=== PATIENT | female | born 1935 | race Caucasian/White ===

== ENCOUNTER 2021-04-30 10:59 | Inpatient (IN) | payer MEDICARE, OTHER, SELFPAY ==
[2021-04-30] VITALS (89 sets, daily range): BP systolic 99–175; BP diastolic 46–119; PULSE 52–139; RESP 13–32; TEMP 36.4–36.7; O2SAT 89–98
--- NOTE | 2021-04-30 11:00 | RT.EKG_ITS ---
APPROVED REPORT Exam: Resting ECG Reason for Exam: was unresponsive Patient Location: E HR:82 bpm ECG Measurements Heart Rate 82 AXIS FL 183 P 0 QRSd 115 QRS -60 QT 434 T 104 QTc 509 Conclusion Unknown rhythm, irregular rate...V-rate 60-104, variation>10% Left anterior fascicular block...axis(240,-40), init forces inf LVH with secondary repolarization abnormality...multi-LVH criteria, abnrm ST-T Anterior infarct, old...Q >40mS, abnormal ST-T, V2-V5 Prolonged QT interval...QTc >500mS atrial fibrillation at 82, left anterior fascicular block, anterior Q waves, QTC 509, no STEMI, nondi agnostic EKG
--- NOTE | 2021-04-30 11:36 | ED.GENADUL_ITS ---
Discharge Plan Disposition Patient Disposition: [facility] INPATIENT Condition: Good Discharge Details Chief Complaint: Dizzy/Sync Clinical Impression: Atrial fibrillation with rapid ventricular response Admit Date/Time: 04/30/21 14:18 Admit Provider: Jena Kelly Attending Provider: Jean Kelly Primary Care Provider: Matthew Sanchez ED Provider: Malia Rajan Discharge Instructions Activity:: Activity as Tolerated Equipment/Supplies:: No Equipment Needed Diet:: Resume routine diet Discharge Orders Discharge Orders: Discharge Order (Routine); Ordered 05/01/21 Ordered By: Jean Kelly Discharge Data Discharge Date/Time-TO BE ENTERED AT DEPARTURE: 04/30/21 15:52 Medical Decision Making Jac Posadas is an 86 y/o woman with a h/o HTN, HLD, atrial fibrillation, and lymphoma who prevented to the emergency department with a reaction during chemo infusion and chest tightness. On exam Pt is well and non-toxic appearing. Tachycardic irregular rhythm. LCTAB. No respiratory distress. Concern for possible infusion reaction, afib with RVR, pulmonary embolism, ACS, metabolic/lyte derangement, other. Exam/hx at this time not c/w acute aortic pathology, anaphylaxis, acute emergent intra-abdominal process, CVA, other acute emergent intracranial etiology. EKG obtained, shows afib. Plan for screening labs, CT chest, telemetry, will monitor and reassess. Pt now with HR 140s. Pt reports that she is asymptomatic. Plan for diltiazem IV bolus. Labs reviewed, WBC 7.57, Hgb 11.4, K 4.2, trop negative. CT chest negative. Pt's HR initially normalized, now rapid afib again. Plan for dilt gtt, admission. Medical Records Medical records reviewed: Yes I reviewed the patient's medical records. Lab Data Lab results reviewed: Yes I reviewed the patient's lab results. ECG Data Attestation: I personally reviewed and interpreted this ECG (s) as follows: Interpretation: EKG shows atrial fibrillation at 82, left anterior fascicular block, anterior Q waves, QTC 509, no STEMI, nondiagnostic EKG HPI General Date/Time Provider Initiated Documentation: 04/30/21 11:00 . Limitations to Documentation: no limitations . Information obtained by: patient, RN notes reviewed and old records reviewed . HPI Narrative: Jac Posadas is an 86 y/o woman h/o HLD, HTN, lymphoma, atrial fibrillation presenting to the emergency department with chest tightness. Pt reports that she was receiving rituximab infusion today for lymphoma when she developed a sensation that she describes as a curtain being pulled up from her feet to her chest, and some chest tightness. No loss of consciousness. She received benadryl and dexamethasone at [facility], and was sent to the emergency department for further eval. Pt reports that she had similar reaction to rituximab in the past, but she and her oncologist had discussed reattempting administration of medication. Pt reports that she was previously in her usual state of health. She reports feeling basically asymptomatic at this time, other than mild chest tightness. She denies any other pain, SOB, cough, fever, vomiting, diarrhea, rash, itching swelling. Related Data Home Medications Medication Instructions Recorded Confirmed Centrum Silver Women 1 tab PO DAILY 04/30/21 04/30/21 Eliquis 5 mg PO BID 04/30/21 04/30/21 acetaminophen 500 mg PO Q6H PRN 04/30/21 04/30/21 cholecalciferol (vitamin D3) 1 mcg PO DAILY 04/30/21 04/30/21 cyanocobalamin (vitamin B-12) 1,000 mcg PO DAILY 04/30/21 04/30/21 escitalopram oxalate 10 mg PO DAILY 04/30/21 04/30/21 metoprolol succinate 50 mg PO DAILY 04/30/21 04/30/21 Allergies Allergy/AdvReac Type Severity Reaction Status Date / Time rosuvastatin AdvReac Unknown Other (See Unverified 04/30/21 18:05 Comment) General Stated Complaint: Dizzy/Sync MATA: 3 Review of Systems Narrative: Constitutional: denies fevers Eyes: denies eye pain ENT: denies ear pain, dental pain, sore throat, difficulty swallowing Cardiovascular: denies edema, reports chest tightness Respiratory: denies SOB, cough GI: denies abdominal pain, vomiting, diarrhea : denies flank pain MSK: denies back pain, neck pain, arthralgias, myalgias Skin: denies rash Neuro: denies headaches, numbness, weakness PFSH Active Problem List Depression (Chronic) Hyperlipidemia (Acute) Essential hypertension (Acute) Malignant lymphoplasmacytic lymphoma (Acute) Atrial fibrillation with rapid ventricular response (Acute) Social History Smoking/Tobacco Use Status: Never Smoking risk assessment performed?: Yes Alcohol Intake: never Drug use: Never Substance use type: does not use Do you feel safe at home: Yes Do you feel safe in your relationship?: Yes Exam Narrative Exam Narrative: Constitutional: well and [id number], pleasant, conversing normally HENT: head atraumatic/normocephalic/normal inspection, mucous membranes moist Eyes: conjunctiva normal, sclera normal, pupils 3mm b/l Neck: no stridor, normal ROM, trachea midline Chest: normal inspection, no tenderness to palpation Resp: normal work of breathing, LCTAB Cardio: tachycardic rate, irregularly irregular rhythm, no murmur appreciated GI: abdomen soft, non-tender, non-distended Back: normal inspection, no rash Skin: warm, dry, normal color, no rash Neuro: alert, not altered, grossly non-focal, normal tone Ext: no edema, no posterior calf TTP Psych: normal mood, normal affect, normal behavior Course Vital Signs Vital signs: Vital Signs Temperature 36.7 C 04/30/21 11:16 Pulse 76 04/30/21 11:16 Respiratory Rate 18 04/30/21 11:16 Blood Pressure 160/76 H 04/30/21 11:16 Pulse Oximetry 94 04/30/21 11:16 Temperature 36.7 C 04/30/21 11:16 Temperature Source Temporal Artery Scan 04/30/21 11:16 Pulse 76 04/30/21 11:16 Respiratory Rate 18 04/30/21 11:16 Respiratory Effort 04/30/21 11:24 Blood Pressure 160/76 H 04/30/21 11:16 Blood Pressure Position Supine 04/30/21 11:16 Pulse Oximetry 94 04/30/21 11:16 Oxygen Delivery Method Room Air 04/30/21 11:16 Oxygen Flow Rate 0 04/30/21 11:16 Pain Level 6 04/30/21 11:16
[2021-04-30] MEDS: Normal Saline 500 ML IV (11:46)
[2021-04-30 11:54] LABS: Bilirubin Negative (Negative); Clarity Clear (Clear); Glucose Negative (Negative); Ketones Negative (Negative); Leukocyte Esterase Negative (Negative); Nitrite Negative (Negative); Urobilinogen 0.2 EU/dL (Up TO 0.2)
[2021-04-30 11:54] LABS: Abs Immature Grans 0.09 10^3/uL (0.0-0.06); Absolute Basophil Count 0.04 10^3/uL (0.0-0.2); Absolute Eosinophil Count 0.06 10^3/uL (0.0-0.7); Absolute Lymphocyte Count 1.84 10^3/uL (1.2-3.4); Absolute Neutrophil Count 5.44 10^3/uL (1.2-6.7); Basophils % 0.5; Eosinophils % 0.8; HGB 11.4 g/dL (11.2-15.7); Immature Grans % 1.2; Lymphocytes % 24.3; MCH 27.1 pg (27.0-33.0); MCHC 31.7 % (32.0-36.0); MCV 85.5 fL (80-95); MPV 10.5 fL (8.0-11.0); Monocytes % 1.3; Neutrophils % 71.9; Nucleated RBC 0 %; Platelet Count 218 10^3/uL (130-400); RBC 4.21 10^6/uL (3.93-5.22); RDW-SD 49.8 fL; WBC 7.57 10^3/uL (4.4-10.8)
[2021-04-30 11:55] LABS: Blood Trace-intact (Negative)
[2021-04-30 12:05] LABS: Epithelial Cells Rare HPF (Negative)
[2021-04-30 12:06] LABS: Bacteria Moderate HPF (Negative); C & S Indicated? Yes; Casts Negative LPF (Negative); Crystals Negative HPF (Negative); Mucus Negative (Negative); Other Cells Few Transitional (Negative)
[2021-04-30 12:11] LABS: BUN 13 mg/dL (7-18); Estimated GFR 52.82 (mL/min/1.73m2); Glucose 112 mg/dL (74-106)
[2021-04-30 12:12] LABS: ALT 100 U/L (14-59); AST 137 U/L (15-37); Albumin 3.6 g/dL (3.4-5.0); Alkaline Phosphatase 89 U/L (46-116); Anion Gap 6.4 mmol/L (3-11); Bilirubin, Total 0.7 mg/dL (0.2-1.0); CO2 29.6 mmol/L (21.0-32.0); Chloride 104 mmol/L (98-107); Lipase 80 U/L (73-393); Magnesium 2.1 mg/dL (1.8-2.4); Potassium 3.7 mmol/L (3.5-5.1); Sodium 140 mmol/L (136-145); Total Protein 8.6 g/dL (6.4-8.2); Troponin I < 0.05 ng/mL (<0.06)
--- NOTE | 2021-04-30 13:00 | DI.CT_ITS ---
Exam(s) CT CHEST PE CTA EXAM: CT CHEST PE CTA CLINICAL HISTORY: chest pain. TECHNIQUE: Imaging Protocol: CT angiography of the chest was performed using pulmonary embolus nova col. Multi planar reconstructions were performed. CONTRAST MATERIAL: Intravenous: Omnipaque 350 Contrast volume: 100 cc COMPARISON: No exams were available for comparison FINDINGS: CHEST: PULMONARY ARTERIES: There are no intraluminal filling defects to suggest acute pulmonary emboli. LUNGS: Some air trapping density is noted bilaterally but no confluent infiltrates nor pleural effusi ons.. No pneumothorax. MEDIASTINUM: There is no hilar nor mediastinal adenopathy. Visualized thyroid unremarkable. CARDIAC: Mild cardiomegaly. No pericardial effusion. Thecaliber of the thoracic aorta is upper norm al. No dissection. Mild-moderate coronary artery calcification noted. There is no significant vanessa ft of the interventricular septum. PARTIALLY VISUALIZED UPPERMOST ABDOMEN: No obvious findings OSSEOUS: No significant osseous lesions.. IMPRESSION: 1. No evidence of acute pulmonary emboli. No evidence of pulmonary infarction.No pleural effusions. 2. No confluent infiltrates. No pneumothorax. No intrathoracic adenopathy. 3. Mild cardiomegaly. No pericardial effusion. RADIATION DOSE DELIVERED: 383.31mGy.cm Total DLP DATA REPOSITORY: All CT scans at this facility are submitted to the National Radiology Data Registry (NRDR) Dose Index Registry (DIR) with the [employer] (ACR). RADIATION OPTIMIZATION: All CT scans at this facility use at least one of these dose optimization te chniques: automated exposure control; mA and/or kV adjustment per patient size (includes targeted exa ms where dose is matched to clinical indication); or iterative reconstruction.
[2021-04-30] MEDS: Normal Saline 1,000 ML 30 ML IV (13:10)
[2021-04-30] MEDS: dilTIAZem 25 MG/5 ML VIAL 10 MG IVP (13:13)
[2021-04-30] MEDS: dilTIAZem 125 MG in Normal Saline 100 ML IV (14:24)
[2021-04-30 15:01] LABS: Source Nasal/Nares
[2021-04-30] MEDS: Omnipaque 350 MG/ML 100 ML BTL IJ (15:14)
[2021-04-30] MEDS: Normal Saline - Diluent 50 ML VIAL IV (15:16)
[2021-04-30] MEDS: Normal Saline Flush 10 ML SYR IVP (15:17)
[2021-04-30 15:34] LABS: Troponin I 0.05 ng/mL (<0.06)
--- NOTE | 2021-04-30 17:00 | W.PM.HP.N ---
Date of service: 04/30/21 Time of Service: 17:00 Assessment and Plan Assessment and plan (1) Atrial fibrillation with rapid ventricular response: Status: Acute Assessment and plan: Likely as a result of the reaction to chemotherapeutic agent; rituximab. No electrolyte abnormalities. No dehydration noted. Cardizem drip initiated with improving ventricular rate; still increases with activity but at rest has improved. Cont AC with Apixaban. Cont her metprolol in the AM. Hopefull will not need to add cardizem to her regimen. (2) Malignant lymphoplasmacytic lymphoma: Status: Acute Assessment and plan: She states that this is the second time she had a reaction to rituximab; first was in 2005. She states she is finished with chemotherapy. She will have that discuassion with her oncologist. (3) Essential hypertension: Status: Acute Assessment and plan: Cont metoprolol and HCTZ daily unless hypotensive. Monitor. (4) Hyperlipidemia: Status: Acute Assessment and plan: Not on a lipid lower medication. (5) Depression: Status: Chronic Assessment and plan: Cont escitalopram. History of Present Illness History of Present Illness Chief Complaint: Reaction to chemotherapy. Narrative: This is an 86 yo female with a PMH of lymphoplasmacytic lymphome, dx June 2005, HLD, HTN, glaucoma, CVA/embolic, Paroxysmal afib. She present to the ED from the [facility] where she received rituximab chemotherapy that resulted in a reaction of feeling a wave come over her; starting in her feet up to her chest. She described chest tightening. No resp distress, oral/throat/tongue swelling, fever, syncope. She received IV steroid and diphenhydramine. In the ED she was noted to be in atrial fibrillation with a rapid ventricular response into the 130's. She was given an IV bolus of cardizem that temporarily lowered her HR into the 110's to 120's, but with any activity / changing positions, her ventricular rate continued to elevate further. No concerning EKG changes noted. Initial troponin of < 0.05. Second troponin was 0.05. Cardizem drip initiated and admitted to the ICU. Review of Systems All systems reviewed & are unremarkable except as noted in HPI and below PFSH Social History Smoking/Tobacco Use Status: Never Smoking risk assessment performed?: Yes Alcohol Intake: never Drug use: Never Substance use type: does not use Do you feel safe at home: Yes Do you feel safe in your relationship?: Yes Meds Allergies and Home Medications Allergies Allergy/AdvReac Type Severity Reaction Status Date / Time rosuvastatin AdvReac Unknown Other (See Unverified 04/30/21 18:05 Comment) Home Medications Medication Instructions Recorded Confirmed Type acetaminophen 500 mg PO Q6H PRN 04/30/21 04/30/21 History apixaban [Eliquis] 5 mg PO BID 04/30/21 04/30/21 History cholecalciferol (vitamin D3) 1 mcg PO DAILY 04/30/21 04/30/21 History cyanocobalamin (vitamin B-12) 1,000 mcg PO DAILY 04/30/21 04/30/21 History escitalopram oxalate 10 mg PO DAILY 04/30/21 04/30/21 History hydrochlorothiazide 12.5 mg PO DAILY 04/30/21 04/30/21 History metoprolol succinate 50 mg PO DAILY 04/30/21 04/30/21 History [id number] 1 tab PO DAILY 04/30/21 04/30/21 History [Centrum Silver Women] Exam Const General: cooperative and no acute distress Nutritional Appearance: overweight Orientation: alert and oriented x3 HENMT Head: atraumatic Ears: hearing grossly normal bilaterally Eyes General: appearance normal, both eyes and all related structures Sclera: sclerae normal Neck Neck: normal visual inspection and no JVD Resp Effort & Inspection: normal respiratory effort Auscultation: clear to auscultation bilaterally Cardio Rate: tachycardic Rhythm: abnormal rhythm irregularly irregular GI Palpation: soft and nontender Auscultation: normal bowel sounds Skin General skin exam: no rashes or lesions noted Extrem General: no pedal edema and no calf tenderness Psych Mental Status: mental status grossly normal Affect: normal affect Results Labs Result diagrams: 04/30/21 11:45 05/01/21 06:10 Labs: Laboratory Results - last 24 hr 04/30/21 04/30/21 04/30/21 11:30 11:45 11:45 WBC 7.57 RBC 4.21 Hgb 11.4 Hct 36.0 MCV 85.5 MCH 27.1 MCHC 31.7 L RDW 16.0 H Plt Count 218 MPV 10.5 Immature Gran % 1.2 Neutrophils % 71.9 Lymphocytes % 24.3 Monocytes % 1.3 Eosinophils % 0.8 Basophils % 0.5 Nucleated RBC % 0 Absolute Neutrophils 5.44 Absolute Lymphocytes 1.84 Absolute Monocytes 0.10 Absolute Eosinophils 0.06 Absolute Basophils 0.04 Sodium 140 Potassium 3.7 Chloride 104 Carbon Dioxide 29.6 Anion Gap 6.4 BUN 13 Creatinine 1.0 Estimated GFR/1.73 m2 52.82 Glucose 112 H Calcium 9.0 Magnesium 2.1 Total Bilirubin 0.7 AST 137 H ALT 100 H Alkaline Phosphatase 89 Troponin I < 0.05 Total Protein 8.6 H Albumin 3.6 Lipase 80 Urine Color Yellow Urine Clarity Clear Urine pH 7.0 Ur Specific [place] 1.020 Urine Protein 100 H Urine Ketones Negative Urine Blood Trace-intact H Urine Nitrite Negative Urine Bilirubin Negative Urine Urobilinogen 0.2 Ur Leukocyte Esterase Negative Urine RBC 5-10 H Urine WBC 5-10 Ur Epithelial Cells Rare Urine Crystals Negative Urine Bacteria Moderate Urine Casts Negative Urine Mucus Negative Urine Other Few Transitional Ur Culture Indicated? Yes Urine Glucose Negative COVID-19 Source 04/30/21 04/30/21 14:48 15:00 WBC RBC Hgb Hct MCV MCH MCHC RDW Plt Count MPV Immature Gran % Neutrophils % Lymphocytes % Monocytes % Eosinophils % Basophils % Nucleated RBC % Absolute Neutrophils Absolute Lymphocytes Absolute Monocytes Absolute Eosinophils Absolute Basophils Sodium Potassium Chloride Carbon Dioxide Anion Gap BUN Creatinine Estimated GFR/1.73 m2 Glucose Calcium Magnesium Total Bilirubin AST ALT Alkaline Phosphatase Troponin I 0.05 Total Protein Albumin Lipase Urine Color Urine Clarity Urine pH Ur Specific [place] Urine Protein Urine Ketones Urine Blood Urine Nitrite Urine Bilirubin Urine Urobilinogen Ur Leukocyte Esterase Urine RBC Urine WBC Ur Epithelial Cells Urine Crystals Urine Bacteria Urine Casts Urine Mucus Urine Other Ur Culture Indicated? Urine Glucose COVID-19 Source Nasal/Nares Last Vital Signs Temp 36.7 C 04/30/21 11:16 Pulse 131 H 04/30/21 15:16 Resp 20 04/30/21 15:20 BP 142/107 H 04/30/21 15:16 Pulse Ox 94 04/30/21 15:20
[2021-04-30 19:20] LABS: Troponin I < 0.05 ng/mL (<0.06)
[2021-04-30 19:28] LABS: COVID-19 PCR Negative (Negative)
[2021-04-30] MEDS: Escitalopram 10 MG TAB PO (19:50)
[2021-04-30] MEDS: Apixaban 5 MG TAB PO (19:50)
[2021-04-30] MEDS: Acetaminophen 325 MG TAB PO (19:51)
[2021-05-01] VITALS (27 sets, daily range): BP systolic 134–150; BP diastolic 65–79; PULSE 55–87; RESP 14–25; TEMP 35.7–36.4; O2SAT 95–98
[2021-05-01 07:37] LABS: Anion Gap 10.5 mmol/L (3-11); BUN 19 mg/dL (7-18); CO2 25.5 mmol/L (21.0-32.0); Calcium 9.2 mg/dL (8.5-10.1); Chloride 104 mmol/L (98-107); Estimated GFR 52.82 (mL/min/1.73m2); Glucose 150 mg/dL (74-106); Potassium 4.2 mmol/L (3.5-5.1); Sodium 140 mmol/L (136-145); TSH 1.01 uIU/mL (0.36-3.74)
[2021-05-01] MEDS: Metoprolol CR 50 MG TABCR PO (07:50)
[2021-05-01] MEDS: Apixaban 5 MG TAB PO (07:50)
[2021-05-01] MEDS: Normal Saline Flush 10 ML SYR IVP (07:51)
--- NOTE | 2021-05-01 08:09 | INITIAL_ITS ---
- If Service Date Differs Date of service: 05/01/21 Time of Service: 08:09 Care Management Initial Assess REASON FOR HOSPITALIZATION:: A-fib with rapid ventricular response PAST MEDICAL HISTORY/PAST SURGICAL HISTORY:: Hyperlipidemia, essential hypertension, malignant lymphoplasmacytic lymphoma, A-fib with rapid ventricular response PREVIOUS FUNCTIONAL STATUS/SOCIAL/FAMILY SUPPORTS:: Resides in [place] with significant other, Neville. She is independent at baseline in the community. Her daughter, Vilma resides nearby in [place] as well. CURRENT FUNCTIONAL STATUS:: Preparing for discharge, requested DC summary be faxed to [facility] F# [phone]. CM faxed as requested. ADVANCE DIRECTIVES:: On file, Wilma as agent. Has patient been provided with info about the portal/API?: Yes Did the patient sign up for the portal?: No (No email. ) CODE STATUS:: DNR/DNI INSURANCE COVERAGE / FINANCIAL ISSUES:: Medicare CURRENT HOME/COMMUNITY SERVICES/EQUIPMENT:: [employer] PRIMARY CARE PHYSICIAN:: Matthew Sanchez POTENTIAL DISCHARGE NEEDS:: Follow up appointment. PATIENT/FAMILY EDUCATION NEEDS:: Review discharge instructions, discuss Ask Me Three. ANTICIPATED BARRIERS TO DISCHARGE:: None identified. TRANSPORTATION:: Via private vehicle with friend. PLAN:: Jac will return home when ready per MD. She will follow up with her PCP and plan of care as prescribed. She will transport via private vehicle with family.
--- NOTE | 2021-05-01 09:55 | DSE_ITS ---
Date of service: 05/01/21 Time of Service: 09:55 DS: Diagnosis Discharge Diagnosis (1) Atrial fibrillation with rapid ventricular response: Status: Acute (2) Malignant lymphoplasmacytic lymphoma: Status: Acute (3) Essential hypertension: Status: Acute (4) Hyperlipidemia: Status: Acute (5) Depression: Status: Chronic Discharge Plan Disposition Patient Disposition: HOME Condition: Good Discharge Details Reason For Visit: Atrial Fibillation with Rapid Ventricular Response Admit Date/Time: 04/30/21 14:18 Admit Provider: Jean Kelly Attending Provider: Jean Kelly [facility]: This is an 86 yo female with a PMH of lymphoplasmacytic lymphome, dx June 2005, HLD, HTN, glaucoma, CVA/embolic, Paroxysmal afib. She present to the ED from the [facility] where she received rituximab chemotherapy that resulted in a reaction of feeling a wave come over her; starting in her feet up to her chest. She described chest tightening. No resp distress, oral/throat/tongue swelling, fever, syncope. She received IV steroid and diphenhydramine. In the ED she was noted to be in atrial fibrillation with a rapid ventricular response into the 130's. She was given an IV bolus of cardizem that temporarily lowered her HR into the 110's to 120's, but with any activity / changing positions, her ventricular rate continued to elevate further. No concerning EKG changes noted. Initial troponin of < 0.05. Second troponin was 0.05. Cardizem drip initiated and admitted to the ICU. Her ventricular heart rate normalized and the cardizem drip stopped. She felt well, at her baseline. She will continue metoprolol as previously taken. She will f/u with her PCP in 1-2 weeks and with oncology per their recommendation. Home Meds and New Rx's Prescriptions: Continued metoprolol succinate 50 mg tablet extended release 24 hr 50 mg PO DAILY RF: 0 acetaminophen 500 mg Capsule 500 mg PO Q6H PRNRF: 0 cholecalciferol (vitamin D3) 10 mcg (400 unit) Capsule 1 mcg PO DAILY RF: 0 escitalopram oxalate 10 mg tablet 10 mg PO DAILY RF: 0 Centrum Silver Women 8 mg iron-400 mcg-300 mcg Tablet 1 tab PO DAILY RF: 0 Eliquis 5 mg tablet 5 mg PO BID RF: 0 cyanocobalamin (vitamin B-12) 1,000 mcg Capsule 1,000 mcg PO DAILY RF: 0 Discontinued hydrochlorothiazide 25 mg tablet 12.5 mg PO DAILY RF: 0 Discharge Instructions Instructions: A-fib (Atrial Fibrillation) (DC) Activity:: Activity as Tolerated Equipment/Supplies:: No Equipment Needed Diet:: Resume routine diet Discharge Orders Discharge Orders: Discharge Order (Routine); Ordered 05/01/21 Ordered By: Jean Kelly DS: Summary Time Spent with Patient providing and/or coordinating discharge services: Greater than 30 minutes Status at Discharge Functional status at discharge: independent ambulation Overall status at discharge: patient is back to baseline Mental Status: mental status grossly normal Speech and Movement: speech and movement normal Mood: congruent mood Affect: normal affect Exam Psych Mental Status: mental status grossly normal Speech and Movement: speech and movement normal Mood: congruent mood Affect: normal affect DS: Data Vitals/I&O Vitals and I&O: Vital Signs Temperature 35.7 C L 05/01/21 07:50 Temperature Source Temporal Artery Scan 05/01/21 07:50 Pulse 70 05/01/21 07:46 Pulse 74 05/01/21 08:00 Respiratory Rate 19 05/01/21 08:00 Respiratory Effort Non-Labored 05/01/21 07:50 Respiratory Depth Normal 05/01/21 07:50 Respiratory Pattern Normal 05/01/21 07:50 Blood Pressure 150/79 H 05/01/21 07:46 Blood Pressure Mean 98 05/01/21 07:46 Blood Pressure Position Right Lateral 05/01/21 04:57 Pulse Oximetry 98 05/01/21 07:46 Oxygen Delivery Method Room Air 05/01/21 07:50 Oxygen Flow Rate 0 05/01/21 07:50 Pain Level 0 05/01/21 07:50 Intake & Output 04/30/21 04/30/21 05/01/21 11:59 23:59 11:59 Intake Total 11802388.604 3779.001 / 1181.001 Output Total 350 / 350 800 / 800 Balance . 821.001 / 831.001 -780 / -780 Weight 68.946 kg 68.3 kg 68.8 kg Intake: IV .001 731.001 / 741.001 Oral 440 / 440 Output: Urine 350 / 350 800 / 800 Other: Urine Color Yellow Yellow Urine Appearance Clear Clear Urine Odor None Normal Comment wears carla pad 24hr/day No incontinence this AM Voiding Methods Bedside Commode Bedside Commode Data Completed and Pending Labs on day of discharge: Labs from last 24 hours 05/01/21 04/30/21 04/30/21 06:10 18:15 15:00 WBC RBC Hgb Hct MCV MCH MCHC RDW Plt Count MPV Immature Gran % Neutrophils % Lymphocytes % Monocytes % Eosinophils % Basophils % Nucleated RBC % Absolute Neutrophils Absolute Lymphocytes Absolute Monocytes Absolute Eosinophils Absolute Basophils Sodium 140 Potassium 4.2 Chloride 104 Carbon Dioxide 25.5 Anion Gap 10.5 BUN 19 H D Creatinine 1.0 Estimated GFR/1.73 m2 52.82 Glucose 150 H Calcium 9.2 Magnesium Total Bilirubin AST ALT Alkaline Phosphatase Troponin I < 0.05 0.05 Total Protein Albumin Lipase TSH 1.01 Urine Color Urine Clarity Urine pH Ur Specific [place] Urine Protein Urine Ketones Urine Blood Urine Nitrite Urine Bilirubin Urine Urobilinogen Ur Leukocyte Esterase Urine RBC Urine WBC Ur Epithelial Cells Urine Crystals Urine Bacteria Urine Casts Urine Mucus Urine Other Ur Culture Indicated? Urine Glucose COVID-19 Source SARS-CoV-2 (PCR) 04/30/21 04/30/21 04/30/21 14:48 11:45 11:45 WBC 7.57 RBC 4.21 Hgb 11.4 Hct 36.0 MCV 85.5 MCH 27.1 MCHC 31.7 L RDW 16.0 H Plt Count 218 MPV 10.5 Immature Gran % 1.2 Neutrophils % 71.9 Lymphocytes % 24.3 Monocytes % 1.3 Eosinophils % 0.8 Basophils % 0.5 Nucleated RBC % 0 Absolute Neutrophils 5.44 Absolute Lymphocytes 1.84 Absolute Monocytes 0.10 Absolute Eosinophils 0.06 Absolute Basophils 0.04 Sodium 140 Potassium 3.7 Chloride 104 Carbon Dioxide 29.6 Anion Gap 6.4 BUN 13 Creatinine 1.0 Estimated GFR/1.73 m2 52.82 Glucose 112 H Calcium 9.0 Magnesium 2.1 Total Bilirubin 0.7 AST 137 H ALT 100 H Alkaline Phosphatase 89 Troponin I < 0.05 Total Protein 8.6 H Albumin 3.6 Lipase 80 TSH Urine Color Urine Clarity Urine pH Ur Specific [place] Urine Protein Urine Ketones Urine Blood Urine Nitrite Urine Bilirubin Urine Urobilinogen Ur Leukocyte Esterase Urine RBC Urine WBC Ur Epithelial Cells Urine Crystals Urine Bacteria Urine Casts Urine Mucus Urine Other Ur Culture Indicated? Urine Glucose COVID-19 Source Nasal/Nares SARS-CoV-2 (PCR) Negative 04/30/21 11:30 WBC RBC Hgb Hct MCV MCH MCHC RDW Plt Count MPV Immature Gran % Neutrophils % Lymphocytes % Monocytes % Eosinophils % Basophils % Nucleated RBC % Absolute Neutrophils Absolute Lymphocytes Absolute Monocytes Absolute Eosinophils Absolute Basophils Sodium Potassium Chloride Carbon Dioxide Anion Gap BUN Creatinine Estimated GFR/1.73 m2 Glucose Calcium Magnesium Total Bilirubin AST ALT Alkaline Phosphatase Troponin I Total Protein Albumin Lipase TSH Urine Color Yellow Urine Clarity Clear Urine pH 7.0 Ur Specific [place] 1.020 Urine Protein 100 H Urine Ketones Negative Urine Blood Trace-intact H Urine Nitrite Negative Urine Bilirubin Negative Urine Urobilinogen 0.2 Ur Leukocyte Esterase Negative Urine RBC 5-10 H Urine WBC 5-10 Ur Epithelial Cells Rare Urine Crystals Negative Urine Bacteria Moderate Urine Casts Negative Urine Mucus Negative Urine Other Few Transitional Ur Culture Indicated? Yes Urine Glucose Negative COVID-19 Source SARS-CoV-2 (PCR) 04/30/21 11:30 Urine - Reflex from Ua Urine Culture - Pending Preliminary micro results at discharge 04/30/21 11:30 Urine Culture - Pending Urine - Reflex from [facility] Social History Smoking/Tobacco Use Status: Never Smoking risk assessment performed?: Yes Alcohol Intake: never Drug use: Never Substance use type: does not use Do you feel safe at home: Yes Do you feel safe in your relationship?: Yes
== END 2021-05-01 10:47 | disposition home or self-care (01) | DRG 309 ==
LOC: ER 15:00 → ICU 15:54
PROVIDERS: Admitting Provider Family Medicine; Emergency Provider Student in an Organized Health Care Education/Training Program; PCP Family Medicine; Visit Provider Family Medicine
DX: I48.0 Paroxysmal atrial fibrillation (principal); C83.00 Small cell B-cell lymphoma, unspecified site; I10 Essential (primary) hypertension; F32.A Depression, unspecified; E78.5 Hyperlipidemia, unspecified; I44.4 Left anterior fascicular block; H40.9 Unspecified glaucoma; Z86.73 Personal history of transient ischemic attack (TIA), and cerebral infarction without residual deficits; Z20.822 Contact with and (suspected) exposure to COVID-19
CPT/HCPCS: 36415; 71275; 80048; 80053; 83690; 87635; 93005; 96361; 96365; 96375; 99285; 81003; 81015; 83735; 84443; 84484; 85025; 87086; 93010; 99222; 99239; 99284; J3490

== ENCOUNTER → 2022-01-16 11:19 | Outpatient (BNVA) | payer MEDICARE, OTHER, SELFPAY | PROVIDERS: PCP Family Medicine; Referring Provider Family Medicine; Visit Provider Internal Medicine Cardiovascular Disease | DX: I48.91 Unspecified atrial fibrillation (principal); R07.9 Chest pain, unspecified; I10 Essential (primary) hypertension | CPT/HCPCS: 93005; 99203 ==

== ENCOUNTER 2022-01-16 11:26 | Outpatient (CLI) | payer MEDICARE, OTHER, SELFPAY ==
--- NOTE | 2022-01-16 11:15 | RT.EKG_ITS ---
APPROVED REPORT Exam: Resting ECG Reason for Exam: NPW Baseline needed Patient Location: O HR:64 bpm ECG Measurements Heart Rate 64 AXIS [place] [id number] P [id number] QRSd 108 QRS -58 QT 476 T 1 QTc 491 Conclusion Atrial fibrillation...? atrial activity Left anterior fascicular block...axis(240,-40), init forces inf Probable left ventricular hypertrophy...(RaVL+SV3)xQRSd >300
== END 2022-01-16 11:27 | disposition home or self-care (01) ==
LOC: DI.CARD 11:27
PROVIDERS: PCP Family Medicine; Visit Provider Internal Medicine Cardiovascular Disease
DX: I48.91 Unspecified atrial fibrillation (principal); R94.31 Abnormal electrocardiogram [ECG] [EKG]; I44.4 Left anterior fascicular block
CPT/HCPCS: 93010

== ENCOUNTER → 2022-01-22 01:42 | Outpatient (CLI) | payer MEDICARE, OTHER, SELFPAY ==
--- NOTE | 2022-01-22 07:00 | DI.NM_ITS ---
APPROVED REPORT Exam: Exercise Treadmill Patient Location: Out-Patient Room/Bed: Stress Nurse: Mahnaz Ramirez RN Ordering Provider:AVA RODRIGUES, Contact Number: [phone] BMI: 27.39 Baseline Rhythm: Atrial Fibrillation Indications: Chest pain at rest. Medical History Medical History: Atrial fibrillation. Lymphoma. Embolic stroke. Anemia. Heart murmur. Cardiac Medications: Eliquis. Metoprolol Succinate. HCTZ. Rituximab. Fluticasone Propionate. Allergies: Rosuvastatin Cardiac Risk Factors: Family hx. PVD. HTN. HLD. Previous Cardiac Procedures: None Pretest Chest Pain Characteristics: No chest pain Exercise History: Indeterminate Physical Disabilities: None Lung Sounds: Clear to auscultation Heart Sounds: Irregular Stress Test Details Test: Exercise stress testing was performed using a Jagdeep protocol. Nuclear Acquisition: Rest Tc-99m/Stress Tc-99m 1 day Rest Isotope: Tc-99m Sestamibi. Dose: 10.7 Date: 01/22/2022 Injection Time: 0850 Stress Isotope: Tc-99m Sestamibi. Dose: 32.4 Date: 01/22/2022 Injection Time: 1015 HR Resting HR Supine: 66 bpm Max Heart Rate (APMHR): 135.678083 bpm Resting HR Standin bpm Target HR (85% APMHR): 114.481271 bpm Max HR Achieved: 150 bpm % of APMHR: 111.11 Recovery HR: 73 bpm HR response to stress: Accelerated HR response to stress Comment: Metoprolol Succinate taken this am 01/22/22 BP Resting BP Supine: 198/98 mmHg Resting BP Standin/100 mmHg Max BP: 210/104 mmHg Recovery BP: 188/102 mmHg BP response to stress: Abnormal hypertensive response to stress. ECG Resting ECG: Atrial Fibrillation Ectopy: None Stress ECG: Atrial Fibrillation ST Change: No significant ST segment changes noted Arrhythmia: VPC's Recovery ECG: Atrial Fibrillation Recovery ST Change: No significant ST segment changes noted Recovery Arrhythmia: None Clinical Reason for Termination: Target HR Achieved Exercise duration: 2 min0 sec Highest Stage Reached: Stage 1: 1.7 mph at 10% grade. Exercise capacity: 4.62 METs Angina Score: None Rate Pressure Product: [id number] Stress ECG Conclusion 1. The resting electrocardiogram showed atrial fibrillation, left axis, IVCD 2. Patient exercised on the Jagdeep protocol and achieved a workload of 4.62 METS 3. Hypertension throughout. Accelerated heart rate response to exercise. The patient achieved great er than 100% of predicted heart rate for age 4. Electrocardiographic portion of the test showed no evidence of myocardial ischemia 5. See MPI report Stress Test Summary STAGE Time (mins) Speed (mph) Grade (%) HR BP SpO2 SYMPTOMS METS Supine 66 198/98 Standing 71 198/100 1 3 1.7 10 146 4.5 1 min recovery 120 192/100 3 min recovery 86 210/104 6 min recovery 73 188/102 MPI Conclusion Normal myocardial perfusion, no evidence of ischemia or prior infarction EF is 50%, wall motion is normal Radiologist Interpretation Radiologist agrees with Unit Director's Interpretation. Radiologist Interpretation by: Eva Sanchez MD Interpretation Date/Time: 01/22/2022 16:53:17
== END ==
PROVIDERS: PCP Family Medicine; Visit Provider Internal Medicine Cardiovascular Disease
DX: I48.91 Unspecified atrial fibrillation (principal); R07.9 Chest pain, unspecified; I10 Essential (primary) hypertension
CPT/HCPCS: 78452; 93016; 93018; 93017

== ENCOUNTER → 2022-03-12 03:05 | Outpatient (CLI) | payer MEDICARE, OTHER, SELFPAY ==
--- NOTE | 2022-03-12 07:34 | DI.US_ITS ---
APPROVED REPORT EXAM: Comprehensive 2D, Doppler, and color-flow Echocardiogram Patient Location: Out-Patient Ncr Operator: Scarlet Mulligan RDCS (AE) Indications: Permanent atrial fibrillation, chest pain Other Information Study Quality: Adequate Conclusion Normal left ventricular wall thickness and chamber size. Estimated ejection fraction is 55%. Wall m otion is normal Normal right ventricular size and systolic function Left atrium is mildly dilated. Right atrium is borderline dilated Mildly sclerotic trileaflet aortic valve without stenosis or regurgitation Mildly thickened mitral leaflets with mild to moderate regurgitation Normal tricuspid valve with mild regurgitation. Estimated right ventricular systolic pressure is 37 mmHg Wall motion Left Ventricle The left ventricle is normal size. The left ventricular systolic function is normal. The left ventric ular ejection fraction is within the normal range. There is normal left ventricular wall thickness. T here is normal LV segmental wall motion. There is no ventricular septal defect visualized. LVEF is 55 %. Right Ventricle The right ventricle is normal size. The right ventricular systolic function is normal. The RVSP is 37 .4 mmHg. Atria Left atrium is mildly dilated. Right atrium is borderline dilated. The interatrial septum is intact w ith no evidence for an atrial septal defect. Aortic Valve The Aortic valve is mildly sclerotic. Aortic valve is trileaflet. There is no aortic valvular stenosi s. No aortic regurgitation is present. Mitral Valve Mildly thickened mitral leaflets No evidence of mitral valve stenosis. Mild to moderate mitral regurg itation. Tricuspid Valve The tricuspid valve is normal in structure. There is no tricuspid valve stenosis. Mild tricuspid regu rgitation. Pulmonic Valve Pulmonic valve is not well visualized. There is no pulmonic valvular stenosis. There is no pulmonic v alvular regurgitation. Great Vessels The aortic root is normal in size. Ascending aorta is not well visualized. Aortic arch is normal in c aliber. IVC is normal in size and collapses >50% with inspiration. Pericardium There is no pericardial effusion. 2D Dimensions IVSD d PLAX 1.03 cm F: 0.6-1.0 LV Vol A2C d MOD 113.4 mL LVPW d PLAX 1.04 cm F: 0.6 - 1.0 LV Vol A4C d MOD 68.5 mL LVID d PLAX 4.26 cm F: 3.8 - 5.2 LA vol/ BSA A2C s A-L 42.3 mL/m2 LVDs 3.05 cm F: 2.2 - 3.5 LA Area A2C s MOD 21.33 cm2 Ao Root d 2.45 cm F: 2.7 - 3.3 LV EF A4C MOD 55.4 % RA Area A4C 18.63 cm2 LV EF A2C MOD 55.3 % RA Vol/ BSA A4C s A-L 33.1 mL/m2 LV EF Biplane MOD 52.6 % LV EF Teichholz 55.0 % SV 46.18 mL LVEF (Melendez's) 52.63 % F: 54 - 74 SV Index 28.45 mL/m2 LV Volume 70.90 mL F: 46 - 106 LV Volume Index 43.76 mL/m2 F: 29 - 61 LV Vol Biplane MOD 87.7 mL FS 28.30 % M-Mode TAPSE 2.12 cm (M/F) >1.7 LV Diastology MV E' medial 0.076 (>0.07 m/s) MV E Vmax 1.10 (0.4-1.3 m/s) LV E/e MED 14.55 (<14) MV E' lateral 0.104 (>0.1 m/s) LV E/e LAT 10.60 (<14) MV E/E' medial 14.56 MV E/E' lateral 10.62 Aortic Valve LVOT Area 2.99 cm2 AoV Area Vmax 1.84 cm2 LVOT Vmax 0.93 m/s AoV Area/ BSA (Vmax) 1.13 cm2/m2 LVOT Mean Carlos. 0.64 m/s RIKY Mean Carlos. 1.76 cm2 LVOT Peak Grad 3.5 mmHg RIKY Mean Carlos. Index 1.09 cm2/m2 LVOT Mean Grad 1.9 mmHg LVOT VTI 0.187 m LVOT Diam s 1.95 cm AoV Vmax 1.52 m/s Velocity Ratio 0.61 AoV Mean Carlos. 1.08 m/s AoV Peak Grad 9.2 mmHg LVOT SV 55.77 mL AoV Mean Grad 5.1 mmHg AoV VTI 0.286 m AoV Area VTI 1.95 cm2 AoV Area/ BSA (VTI) 1.20 cm/m2 Mitral Valve MV DT 185 (160-240 msec) MR Vmax 4.52 m/s MV PHT 54 msec MR VTI 1.586 m MV Area PHT 4.11 cm2 MR Peak Grad 81.8 mmHg MV VTI 0.300 m MR Mean Grad 59.3 mmHg MV Area VTI 1.86 (4.0-6.0 cm2) Pulmonary Valve PV Vmax 0.85 (0.5-1.5 m/s) RVOT Peak Gr. 1.69 mmHg PV Peak Grad 2.9 mmHg RVOT Mean Gr. 1.00 mmHg PV Mean Grad 1.5 mmHg RVOT VTI 0.130 m PV VTI 0.204 m RVOT Vmax 0.65 m/s Tricuspid Valve TR Peak Grad 34.4 mmHg TR Vmax 2.93 m/s RA Pressure 3.00 mmHg RVSP (TR) 37.4 mmHg
== END ==
PROVIDERS: PCP Family Medicine; Visit Provider Internal Medicine Cardiovascular Disease
DX: I48.91 Unspecified atrial fibrillation (principal); R07.9 Chest pain, unspecified
CPT/HCPCS: 93306

== ENCOUNTER → 2022-03-31 09:14 | Outpatient (BNVA) | payer MEDICARE, OTHER, SELFPAY | PROVIDERS: PCP Family Medicine; Referring Provider Family Medicine; Visit Provider Internal Medicine Cardiovascular Disease | DX: I48.91 Unspecified atrial fibrillation (principal); R07.9 Chest pain, unspecified; I10 Essential (primary) hypertension | CPT/HCPCS: 99214 ==

== ENCOUNTER → 2023-03-30 09:28 | Outpatient (BNVA) | payer MEDICARE, OTHER, SELFPAY | PROVIDERS: PCP Family Medicine; Referring Provider Family Medicine; Visit Provider Internal Medicine Cardiovascular Disease | DX: Z79.01 Long term (current) use of anticoagulants (principal); C83.00 Small cell B-cell lymphoma, unspecified site; I48.91 Unspecified atrial fibrillation; R07.9 Chest pain, unspecified; I10 Essential (primary) hypertension | CPT/HCPCS: 99214 ==

== ENCOUNTER 2024-04-04 08:10 | Outpatient (CLI) | payer MEDICARE, OTHER, SELFPAY ==
--- NOTE | 2024-04-04 08:00 | RT.EKG_ITS ---
APPROVED REPORT Exam: Resting ECG Reason for Exam: aflutter Patient Location: O HR:72 bpm ECG Measurements Heart Rate 72 AXIS [place] [id number] P [id number] QRSd 127 QRS -62 QT 456 T 7 QTc 500 Conclusion Atrial fibrillation... LAFB...QRSd >120mS, axis(-40,240) Probable left ventricular hypertrophy...(RaVL+SV3)xQRSd >300
== END 2024-04-04 08:11 | disposition home or self-care (01) ==
LOC: DI.CARD 08:10
PROVIDERS: PCP Family Medicine; Visit Provider Internal Medicine Cardiovascular Disease
DX: R07.9 Chest pain, unspecified (principal); I48.91 Unspecified atrial fibrillation
CPT/HCPCS: 93010

== ENCOUNTER → 2024-04-04 10:40 | Outpatient (BNVA) | payer MEDICARE, OTHER, SELFPAY | PROVIDERS: PCP Family Medicine; Referring Provider Family Medicine; Visit Provider Internal Medicine Cardiovascular Disease | DX: I48.21 Permanent atrial fibrillation (principal); R07.9 Chest pain, unspecified | CPT/HCPCS: 93005; 99214 ==

== ENCOUNTER → 2025-04-03 10:21 | Outpatient (BNVA) | payer MEDICARE, OTHER, SELFPAY | PROVIDERS: PCP Family Medicine; Referring Provider Family Medicine; Visit Provider Internal Medicine Cardiovascular Disease | DX: I48.21 Permanent atrial fibrillation (principal); I10 Essential (primary) hypertension; Z23 Encounter for immunization | CPT/HCPCS: 99213; 90653; 90471; G0008 ==